=== PATIENT | female | born 1965 | race African-American/Black ===

== ENCOUNTER 2022-10-29 17:07 | Emergency (ER) | payer OTHER ==
[~2022-10-29] VITALS: Ht 165.1 cm; Wt 79.4 kg
[2022-10-29 18:25] LABS: Basophils # (auto) 0.1 10 ^3/uL (0-0.2); Basophils % (auto) 0.9 % (0.0-2.0); Eosinophils # (auto) 0 10 ^3/uL (0-0.8); Eosinophils % (auto) 0.2 % (0.0-7.0); Hemoglobin 16.1 g/dL (12.2-16.2); Lymphocytes # (auto) 2.3 10 ^3/uL (0.4-5.4); Lymphocytes % (auto) 20.5 % (10.0-50.0); Mean Corpuscular Hgb Conc. 34.2 g/dL (32.0-36.0); Mean Corpuscular Volume 90.8 fL (80.0-100.0); Monocytes # (auto) 0.4 10 ^3/uL (0-1.3); Monocytes % (auto) 3.6 % (0.0-12.0); Neutrophils # (auto) 8.2 10 ^3/uL (1.6-8.6); Neutrophils % (auto) 74.8 % (37.0-80.0); Nucleated Red Blood Cells % 0.1 %; Red Blood Cells 5.17 10^6/uL (4.0-5.20); Red Cell Distribution Width 15.3 % (11.8-14.3)
[2022-10-29 18:34] LABS: Albumin 4.6 g/dL (3.4-5.0); Calcium 9.4 mg/dL (8.5-10.1); Magnesium 2.1 mg/dL (1.6-2.6)
[2022-10-29 18:38] LABS: BUN/Creatinine Ratio 21.3 (10.0-20.0); Bilirubin, Total 0.6 mg/dL (0.2-1.0); Total Protein 8.3 g/dL (6.4-8.2)
[2022-10-29 18:40] LABS: INR 2.48 (0.9-1.15); Partial Thromboplastin Time 38.6 SEC (24.5-34.5)
[2022-10-29] MEDS ORDERED: IOHEXOL 350 MG/ML 100ML IJ ONE (20:02)
[2022-10-29] MEDS ORDERED: SODIUM CHLORIDE 0.9% 1,000 ML IV ONE (21:15)
[2022-10-30] MEDS ORDERED: DICY10CA PO (00:05)
[2022-10-30] MEDS ORDERED: CEPH500C PO (00:05)
[2022-10-30 00:35] VITALS: BP 173/92
[2022-10-30] MEDS ORDERED: IOHEXOL 350 MG/ML 100ML IJ ONE (01:51)
== END 2022-10-30 00:45 | disposition home or self-care (01) ==
LOC: ER 17:07
DX: K52.9 Noninfective gastroenteritis and colitis, unspecified (principal); R10.9 Unspecified abdominal pain; N39.0 Urinary tract infection, site not specified; J45.909 Unspecified asthma, uncomplicated; I10 Essential (primary) hypertension; Z86.73 Personal history of transient ischemic attack (TIA), and cerebral infarction without residual deficits
CPT/HCPCS: 36415; 71045; 71260; 74177; 80053; 82962; 83605; 83690; 83735; 83880; 84484; 85025; 85610; 85730; 93005; 96360; 99285; J7030; Q9967